=== PATIENT | female | born 1965 | race African-American/Black ===

== ENCOUNTER 2016-07-09 06:43 | Emergency (ER) | payer MEDICAID ==
[~2016-07-09] VITALS: Ht 175.3 cm; Wt 101.0 kg
[~2016-07-09 06:43] MED LIST: ATEN50TA PO; DOCU-138 PO; HYDR25TA PO; LEVO500T15 PO; LOSA100T14 PO; TRAM50TA73 PO
[2016-07-09] MEDS ORDERED: KETOROLAC 60MG/2ML VIAL IM ONE (07:45)
[2016-07-09] MEDS ORDERED: METHOCARBAMOL 500MG TABLET PO ONE (07:45)
[2016-07-09 08:22] LABS: GLUCOSE URINE NEGATIVE (NEGATIVE); KETONES URINE NEGATIVE (NEGATIVE); LEUKOCYTE ESTERASE URINE TRACE (NEGATIVE); NITRITE URINE NEGATIVE (NEGATIVE); OCCULT BLOOD URINE NEGATIVE (NEGATIVE); PROTEIN URINE NEGATIVE (NEGATIVE); SPECIFIC GRAVITY URINE 1.012 (1.005-1.030); UROBILINOGEN URINE 0.2 E.U./dL (0.2-1.0)
[2016-07-09 08:33] LABS: CLARITY URINE CLEAR (CLEAR); COLOR URINE YELLOW (YELLOW)
[2016-07-09 08:52] LABS: BACTERIA URINE TRACE; RBC URINE 0-2 /hpf (0-2); SQUAMOUS EPITHELIAL CELL URINE FEW /lpf (RARE/1+); TRICHOMONAS URINE RARE; WBC URINE 0-2 /hpf (0-2)
[2016-07-09 09:00] VITALS: BP 143/96
== END 2016-07-09 10:11 | disposition home or self-care (01) ==
LOC: ER 07:31
DX: S39.012A Strain of muscle, fascia and tendon of lower back, initial encounter (principal); Z88.0 Allergy status to penicillin; Z79.899 Other long term (current) drug therapy; I10 Essential (primary) hypertension; J45.909 Unspecified asthma, uncomplicated; S73.101A Unspecified sprain of right hip, initial encounter; M16.11 Unilateral primary osteoarthritis, right hip; W01.0XXA Fall on same level from slipping, tripping and stumbling without subsequent striking against object, initial encounter; Y93.89 Activity, other specified; Y99.9 Unspecified external cause status; Y92.89 Other specified places as the place of occurrence of the external cause
CPT/HCPCS: 72170; 81001; 96372; 99285; J1885

== ENCOUNTER 2019-01-01 18:20 | Emergency (ER) | payer MEDICAID ==
[~2019-01-01] VITALS: Ht 175.3 cm; Wt 125.0 kg
[~2019-01-01 18:20] MED LIST changes: -LEVO500T15 PO; +LEVO500T2 PO; -LOSA100T14 PO; +LOSA100T32 PO; -TRAM50TA73 PO; +TRAM50TA94 PO
[2019-01-01] MEDS ORDERED: TRAMADOL 50MG TABLET PO NR (19:30)
[2019-01-01] MEDS ORDERED: KETOROLAC 60MG/2ML VIAL IM NR (19:30)
[2019-01-01] MEDS ORDERED: CLONIDINE 0.1MG TABLET PO ONE (19:45)
[2019-01-01 22:05] VITALS: BP 129/74
== END 2019-01-01 22:08 | disposition home or self-care (01) ==
LOC: ER 18:20
DX: I10 Essential (primary) hypertension (principal)
CPT/HCPCS: 96372; 99283; J1885

== ENCOUNTER 2019-11-23 00:05 | Emergency (ER) | payer MEDICAID, OTHER ==
[~2019-11-23] VITALS: Ht 175.3 cm; Wt 108.0 kg
[2019-11-23 00:29] VITALS: BP 167/89
[2019-11-23] MEDS ORDERED: ACETAMINOPHEN WITH CODEINE 300/30MG TABLET PO NR (01:15)
[2019-11-23] MEDS ORDERED: KETOROLAC 30MG/ML VIAL IM ONE (02:15)
== END 2019-11-23 03:46 | disposition home or self-care (01) ==
LOC: ER 00:05
DX: S53.401A Unspecified sprain of right elbow, initial encounter (principal); S43.401A Unspecified sprain of right shoulder joint, initial encounter; I10 Essential (primary) hypertension; F12.10 Cannabis abuse, uncomplicated; Z79.899 Other long term (current) drug therapy; Z96.659 Presence of unspecified artificial knee joint; Z90.710 Acquired absence of both cervix and uterus; V19.88XA Pedal cyclist (driver) (passenger) injured in other specified transport accidents, initial encounter; Y93.89 Activity, other specified; Y92.89 Other specified places as the place of occurrence of the external cause; Y99.8 Other external cause status
CPT/HCPCS: 29240; 73030; 73080; 96372; 99284; J1885; L3670

== ENCOUNTER 2020-01-01 21:49 | Emergency (ER) | payer MEDICAID, OTHER ==
[~2020-01-01] VITALS: Ht 172.7 cm; Wt 105.0 kg
[2020-01-01] MEDS ORDERED: KETOROLAC 30MG/ML VIAL IM ONE (23:15)
[2020-01-01 23:30] VITALS: BP 125/89
== END 2020-01-01 23:32 | disposition home or self-care (01) ==
LOC: ER 21:49
DX: M25.421 Effusion, right elbow (principal); I10 Essential (primary) hypertension; F12.10 Cannabis abuse, uncomplicated; Z90.710 Acquired absence of both cervix and uterus; Z90.49 Acquired absence of other specified parts of digestive tract; Z79.899 Other long term (current) drug therapy
CPT/HCPCS: 99281

== ENCOUNTER 2025-02-14 04:30 | Emergency (ER) | payer MEDICAID ==
[~2025-02-14] VITALS: Ht 175.3 cm; Wt 105.0 kg
[~2025-02-14 04:30] MED LIST changes: -LOSA100T32 PO; +LOSA100T33 PO
[2025-02-14 04:36] VITALS: O2SAT 99
[2025-02-14 04:37] VITALS: O2SAT 98
[2025-02-14] MEDS ORDERED: LIDO700A30 TP (05:42)
[2025-02-14] MEDS ORDERED: METH-653 MT (05:42)
[2025-02-14] MEDS: KETOROLAC 30MG/ML VIAL IM ONE (06:03)
[2025-02-14] MEDS: METHOCARBAMOL 500MG TABLET PO ONE (06:04)
[2025-02-14 06:08] VITALS: BP 138/100; PULSE 83; RESP 14; TEMP 36.7
== END 2025-02-14 06:11 | disposition home or self-care (01) ==
LOC: ER 04:30
DX: S13.4XXA Sprain of ligaments of cervical spine, initial encounter (principal); I10 Essential (primary) hypertension; M19.90 Unspecified osteoarthritis, unspecified site; Z79.899 Other long term (current) drug therapy; Z88.0 Allergy status to penicillin; Z90.49 Acquired absence of other specified parts of digestive tract; Z90.710 Acquired absence of both cervix and uterus; Z96.659 Presence of unspecified artificial knee joint; X58.XXXA Exposure to other specified factors, initial encounter; Y93.89 Activity, other specified; Y92.89 Other specified places as the place of occurrence of the external cause; Y99.8 Other external cause status
CPT/HCPCS: 99283; 96372; J1885